=== PATIENT | male | born 1990 | race Caucasian/White ===

== ENCOUNTER 2017-01-28 00:31 | Emergency (ER) | payer OTHER ==
[~2017-01-28] VITALS: Ht 193 cm; Wt 89.7 kg
[2017-01-28] MEDS ORDERED: KETOROLAC 30 MG/1 ML ONE (01:15)
[2017-01-28] MEDS ORDERED: DIPHENHYDRAMINE 50 MG/ML, 1ML ONE (01:16)
[2017-01-28] MEDS ORDERED: PROCHLORPERAZINE 5 MG/ML, 2ML ONE (01:16)
[2017-01-28] MEDS ORDERED: PROCHLORPERAZINE 5 MG/ML, 2ML IVPush ONE (01:30)
[2017-01-28] MEDS ORDERED: DIPHENHYDRAMINE 50 MG/ML, 1ML IVPush ONE (01:30)
[2017-01-28] MEDS ORDERED: KETOROLAC 30 MG/1 ML IVPush ONE (01:30)
[2017-01-28] MEDS ORDERED: SODIUM CHLORIDE 0.9% 1,000ML IVBOLUS ONE (01:30)
[2017-01-28 02:31] VITALS: BP 104/67
== END 2017-01-28 02:57 | disposition home or self-care (01) ==
LOC: ED 01:37
DX: G43.009 Migraine without aura, not intractable, without status migrainosus (principal)
CPT/HCPCS: 96374; 96375; 99284; J0780; J1200; J1885; J7030